=== PATIENT | female | born 2000 | race Caucasian/White ===

== ENCOUNTER 2021-03-08 00:07 | Emergency (ER) | payer SELFPAY ==
[~2021-03-08] VITALS: Ht 177.8 cm; Wt 99.8 kg
--- NOTE | 2021-03-08 00:31 | NUR ---
BIB SELF COMPLAINING OD LIP LACERATION AND R KNEE PAIN S/P MECHANICAL TRIP AND FALL IN THE SHOWER. DENIES KO NO NEURO DEFICITS NOTED ALERT AND ORIENTED X4. VITAL SIGNS STABLE MD WAS AT BEDSIDE FOR EVAL.
--- NOTE | 2021-03-08 01:45 | NUR ---
AMBULATED TO THE RESTROOM
[2021-03-08] MEDS ORDERED: IBUP-1955 PO (02:55)
[2021-03-08] MEDS ORDERED: TDAP [DIPH/PERTUSSIS/TET] 0.5 ML VIAL IM ONE ×2 (02:56→03:00)
[2021-03-08] MEDS ORDERED: IBUPROFEN 600 MG TABLET ONE (02:56)
[2021-03-08] MEDS: IBUPROFEN 600 MG TABLET PO ONE ×2 (03:05→03:13)
--- NOTE | 2021-03-08 03:09 | NUR ---
Patient discharged to home in stable condition. Written and verbal after care instructions given. Patient verbalizes understanding of instruction.
[2021-03-08 03:16] VITALS: BP 135/81
== END 2021-03-08 03:10 | disposition home or self-care (01) ==
LOC: ER 00:18
DX: S02.5XXA Fracture of tooth (traumatic), initial encounter for closed fracture (principal); S03.2XXA Dislocation of tooth, initial encounter; S01.511A Laceration without foreign body of lip, initial encounter; S80.01XA Contusion of right knee, initial encounter; S09.8XXA Other specified injuries of head, initial encounter; F17.200 Nicotine dependence, unspecified, uncomplicated; W01.0XXA Fall on same level from slipping, tripping and stumbling without subsequent striking against object, initial encounter; Y93.E1 Activity, personal bathing and showering; Y92.091 Bathroom in other non-institutional residence as the place of occurrence of the external cause; Y99.8 Other external cause status
CPT/HCPCS: 70160; 90471; 90715; 99283; A6403

== ENCOUNTER 2022-08-18 22:31 | Emergency (ER) | payer OTHER ==
[~2022-08-18] VITALS: Ht 177.8 cm; Wt 113.4 kg
[~2022-08-18 22:31] MED LIST: IBUP-1955 PO
[2022-08-19 00:51] LABS: BASOPHILS # (AUTO) 0.1 K/uL (0.0-0.2); BASOPHILS % (AUTO) 0.6 % (0.0-2.0); EOSINOPHILS % (AUTO) 2.5 % (0.0-6.0); HEMATOCRIT 40 % (33-45); HEMOGLOBIN 12.9 g/dL (11.5-14.8); LYMPHOCYTES % (AUTO) 27.7 % (20.0-44.0); MEAN CORPUSCULAR HGB CONC 33 g/dl (31.0-36.0); MEAN CORPUSCULAR VOLUME 79 fL (82-100); MONOCYTES # (AUTO) 0.6 K/uL (0.1-1.30); NEUTROPHILS # (AUTO) 6.8 K/uL (1.8-8.9); NEUTROPHILS % (AUTO) 63.2 % (43.0-81.0); PLATELET COUNT (AUTO) 378 K/uL (150-450); RED BLOOD CELL COUNT(AUTO) 5.06 MIL/uL (4.0-5.2); WHITE BLOOD COUNT (AUTO) 10.8 K/uL (4.3-11.0)
[2022-08-19 00:58] LABS: BILIRUBIN,URINE NEGATIVE (NEGATIVE); COLOR,URINE YELLOW (YELLOW); LEUKOCYTE ESTERASE ,URINE NEGATIVE (NEGATIVE); NITRITE, URINE NEGATIVE (NEGATIVE); PH,URINE 7.5 (5.0-8.0); PROTEIN,URINE NEGATIVE (NEGATIVE); UGLUCOSE NEGATIVE (NEGATIVE); UROBILINOGEN,URINE 0.2 EU/dL (0.2)
[2022-08-19 01:50] LABS: CALCIUM, SERUM 9.2 mg/dL (8.5-10.1); CARBON DIOXIDE 26 mmol/L (21-32); CHLORIDE 100 mmol/L (98-107); POTASSIUM 3.8 mmol/L (3.5-5.1); SODIUM SERUM 135 mmol/L (136-145)
[2022-08-19 01:51] LABS: BILIRUBIN,DIRECT 0.1 mg/dL (0.0-0.2); BILIRUBIN,TOTAL 0.2 mg/dL (0.2-1.0); CREATININE 0.8 mg/dL (0.6-1.3); GLUCOSE 101 mg/dL (74-106)
[2022-08-19 01:52] LABS: ALANINE AMINOTRANSFERASE 31 U/L (12-78); ALBUMIN 3.9 g/dL (3.4-5.0); ALCOHOL, BLOOD < 3 mg/dL (0-0); ALKALINE PHOSPHATASE 55 U/L (46-116); ASPARTATE AMINOTRANSFERASE 21 U/L (15-37)
[2022-08-19 02:01] LABS: UREA NITROGEN, BLOOD 16 mg/dL (7-18)
--- NOTE | 2022-08-19 02:54 | NUR ---
PATIENT IS A, OX4 AND VERBALLY RESPONSIVE. REPORTED NO LONGER SI/HI AND REPORTED WILLING TO LEAVE THE HOSPITAL. PATIENT IS AMBULATORY WITH STEADY GAITTS. PO INTAKE TOLERATED WELL. MD MADE AWARE. STABLE FOR DISCHARGE.
--- NOTE | 2022-08-19 02:57 | NUR ---
Patient discharged to home in stable condition. Written and verbal after care instructions given. Patient verbalizes understanding of instruction. patient was provided with necessary resources.
[2022-08-19 06:25] VITALS: BP 128/79
== END 2022-08-19 03:00 | disposition home or self-care (01) ==
LOC: ER 22:45
DX: R45.851 Suicidal ideations (principal); F32.A Depression, unspecified; E03.9 Hypothyroidism, unspecified; F17.200 Nicotine dependence, unspecified, uncomplicated; Z79.899 Other long term (current) drug therapy; Z20.822 Contact with and (suspected) exposure to COVID-19
CPT/HCPCS: 99285; 36415; 80307; 85025; 80048; 80076; 84703; 81003; 87426; 80143; 80320; C9803; G0480